=== PATIENT | male | born 1965 | race African-American/Black ===

== ENCOUNTER 2019-06-06 00:06 | Emergency (ER) | payer MEDICAID, OTHER ==
[~2019-06-06] VITALS: Ht 193 cm; Wt 114.0 kg
[~2019-06-06 00:06] MED LIST: AMOX-424 PO
[2019-06-06 02:34] LABS: BASOPHILS % 0.6 % (0.0-2.0); EOSINOPHILS % 5.7 % (0.0-5.0); HEMATOCRIT. 39.9 % (42.0-52.0); HEMOGLOBIN. 13.6 g/dL (14.0-18.0); LYMPHOCYTES % 20.4 % (20.0-50.0); MEAN CORPUSCULAR HEMOGLOBIN 30.2 pg (28.0-32.0); MEAN CORPUSCULAR VOLUME 88.5 fL (80.0-94.0); MEAN PLATELET VOLUME 7.9 fl (7.4-10.4); MONOCYTES % 9.6 % (2.0-8.0); NEUTROPHILS % 63.7 % (40.0-76.0); PLATELET 203 x1000/uL (130-400); RED CELL DISTRIBUTION WIDTH 14.5 % (11.6-14.6)
[2019-06-06 02:37] LABS: CHLORIDE 104 mEq/L (98-107)
[2019-06-06] MEDS ORDERED: ACETAMINOPHEN 325MG TABLET PO ONE (04:45)
[2019-06-06 05:05] VITALS: BP 148/88
== END 2019-06-06 05:06 | disposition home or self-care (01) ==
LOC: ER 00:06
DX: I10 Essential (primary) hypertension (principal); L84 Corns and callosities; R42 Dizziness and giddiness; M79.671 Pain in right foot; F12.10 Cannabis abuse, uncomplicated; Z91.14 Patient's other noncompliance with medication regimen
CPT/HCPCS: 36415; 70450; 80053; 84484; 85025; 93005; 99284; Z7610

== ENCOUNTER 2019-08-10 01:37 | Emergency (ER) | payer OTHER ==
[~2019-08-10] VITALS: Ht 193 cm; Wt 114.0 kg
[2019-08-10] MEDS ORDERED: ACETAMINOPHEN 325MG TABLET PO ONE (02:30)
[2019-08-10] MEDS ORDERED: LISINOPRIL 20MG TABLET PO ONE (02:30)
[2019-08-10 02:32] VITALS: BP 188/123
== END 2019-08-10 03:15 | disposition left against medical advice (07) ==
LOC: ER 01:37
DX: I10 Essential (primary) hypertension (principal)
CPT/HCPCS: 99283

== ENCOUNTER 2019-10-12 05:54 | Emergency (ER) | payer OTHER ==
[~2019-10-12] VITALS: Ht 190.5 cm; Wt 100.0 kg
[2019-10-12 06:29] VITALS: BP 148/102
[2019-10-12] MEDS ORDERED: IBUPROFEN 800MG TABLET PO ONE (06:30)
== END 2019-10-12 06:52 | disposition home or self-care (01) ==
LOC: ER 05:54
DX: L84 Corns and callosities (principal); M79.644 Pain in right finger(s); I87.8 Other specified disorders of veins; I10 Essential (primary) hypertension; Z79.899 Other long term (current) drug therapy
CPT/HCPCS: 99282

== ENCOUNTER 2019-11-01 22:23 | Emergency (ER) | payer MEDICAID, OTHER ==
[~2019-11-01] VITALS: Ht 193 cm; Wt 114.0 kg
[2019-11-01 22:50] VITALS: BP 174/112
[2019-11-02] MEDS ORDERED: HYDRALAZINE HCL 10MG TABLET PO NR (02:00)
== END 2019-11-02 02:31 | disposition home or self-care (01) ==
LOC: ER 22:23
DX: M79.662 Pain in left lower leg (principal); I10 Essential (primary) hypertension
CPT/HCPCS: 93971; 99284

== ENCOUNTER 2019-12-25 16:46 | Emergency (ER) | payer MEDICAID, OTHER ==
[~2019-12-25] VITALS: Ht 193 cm; Wt 115.0 kg
[2019-12-25 18:19] VITALS: BP 180/98
== END 2019-12-25 18:20 | disposition home or self-care (01) ==
LOC: ER 16:46
DX: Z76.0 Encounter for issue of repeat prescription (principal); I10 Essential (primary) hypertension
CPT/HCPCS: 99283

== ENCOUNTER 2020-10-04 19:54 | Emergency (ER) | payer OTHER ==
[~2020-10-04] VITALS: Ht 193 cm; Wt 114.0 kg
[2020-10-04 23:00] VITALS: BP 186/116
[2020-10-04] MEDS ORDERED: ACETAMINOPHEN 500MG TABLET PO ONE (23:30)
== END 2020-10-04 23:48 | disposition home or self-care (01) ==
LOC: ER 19:54
DX: U07.1 COVID-19 (principal); I10 Essential (primary) hypertension; Z88.6 Allergy status to analgesic agent; Z86.711 Personal history of pulmonary embolism
CPT/HCPCS: 71045; 99284; C9803

== ENCOUNTER 2021-12-24 00:43 | Emergency (ER) | payer OTHER | END 2021-12-24 01:15 | disposition left against medical advice (07) | LOC: ER 00:43 | DX: Z53.21 Procedure and treatment not carried out due to patient leaving prior to being seen by health care provider (principal) ==

== ENCOUNTER 2023-12-04 21:19 | Emergency (ER) | payer OTHER ==
[~2023-12-04] VITALS: Ht 193 cm; Wt 117.9 kg
[2023-12-04 21:35] VITALS: BP 160/106; PULSE 91; RESP 18; TEMP 98.5; O2SAT 99
== END 2023-12-04 22:34 | disposition left against medical advice (07) ==
LOC: ER 21:19
DX: M54.9 Dorsalgia, unspecified (principal); Z53.21 Procedure and treatment not carried out due to patient leaving prior to being seen by health care provider